=== PATIENT | female | born 2000 ===

== ENCOUNTER 2023-10-20 09:30 | Inpatient (IN) | payer OTHER ==
[~2023-10-20] VITALS: Ht 165.1 cm; Wt 56.7 kg
[2023-10-20 09:48] LABS: PH,URINE 5.5 (5.0-8.0); URINE APPEARANCE Clear; URINE BILIRRUBIN Negative (NEGATIVE); URINE BLOOD Large; URINE COLOR Orange; URINE GLUCOSE Negative (NEGATIVE); URINE KETONE Negative (NEGATIVE); URINE LEUKOCYTE Trace; URINE NITRATE Negative; URINE PROTEIN Negative (NEGATIVE)
[2023-10-20 09:51] LABS: HEMATOCRIT 27.8 % (36.0-45.00); MEAN CELL VOLUME 82.8 fL (80.00-100.00); PLATELET COUNT 241 K/uL (150-450); RED BLOOD COUNT 3.35 M/uL (4.00-6.00); RED CELL DISTRIBUTION WIDTH 23.3 % (11.5-14.5)
[2023-10-20 09:52] LABS: HEMOGLOBIN 10.5 g/dL (12.0-15.00); MEAN CORPUSCULAR HEMOGLOBIN 31.3 pg (27.00-32.0)
[2023-10-20 09:53] LABS: URINE BACTERIA 957.5 uL (0.0-1933); URINE EPITHELIAL CELLS 29.6 uL (0.0-38.8); URINE WBC 7.5 uL (0.0-23.2)
[2023-10-20] MEDS ORDERED: FOLIC ACID20 MG PO (10:02)
[2023-10-20] MEDS ORDERED: MAXIMUM D3325 MCG PO (10:02)
[2023-10-20 10:09] VITALS: BP 104/68
[2023-10-20 10:16] LABS: URINE CAST 0.15 uL (0.0-1.40)
[2023-10-20 10:45] LABS: INR 1.07; PARTIAL THROMBOPLASTIN TIME 27.1 SECONDS (22.0-34.0)
[2023-10-20 10:48] LABS: PROTHROMBIN TIME 11.6 SECONDS (9.0-11.5)
[2023-10-20 11:15] LABS: ALBUMIN 4.6 gm/dL (3.4-5.0); BILIRUBIN TOTAL 4.15 mg/dL (0.3-1.2); CALCIUM 9.5 mg/dL (8.5-10.1); CREATININE SERUM 0.34 mg/dL (0.55-1.02); GFR 243.05; GLOBULINA 3.1 G/DL (2.4-3.5); POTASSIUM 3.73 mEq/L (3.5-5.1); TOTAL PROTEIN 7.7 gm/dL (6.4-8.2)
[2023-10-24] MEDS ORDERED: CEFAZOLIN SODIUM 1,000 MG VIAL ONE ×2 (07:05→17:44)
[2023-10-24] MEDS ORDERED: SUGAMMADEX SODIUM 200 MG/2 ML VIAL IV ONE (16:21)
[2023-10-24] MEDS ORDERED: MORPHINE SULFATE 4 MG/ML VIAL IV SCH (17:00)
[2023-10-24] MEDS ORDERED: FAMOTIDINE/PF 20 MG/2 ML VIAL ONE (17:45)
[2023-10-24] MEDS ORDERED: CEFAZOLIN SODIUM 1,000 MG VIAL IV SCH (18:00)
[2023-10-24] MEDS ORDERED: MORPHINE SULFATE 4 MG/ML CARTRIDGE IV SCH (21:00)
[2023-10-24] MEDS ORDERED: FAMOTIDINE/PF 20 MG/2 ML VIAL IV SCH (21:00)
[2023-10-24 21:44] VITALS: BP 128/60; O2SAT 86
[2023-10-25 00:28] VITALS: BP 97/61; O2SAT 100
[2023-10-25] MEDS ORDERED: ONDANSETRON HCL 2 MG/ML VIAL IV ONE (05:30)
[2023-10-25 09:08] VITALS: BP 79/41; O2SAT 100
[2023-10-25] MEDS ORDERED: ACETAMINOPHEN 500 MG GEL..CAP PO PRN (10:45)
[2023-10-25 16:49] VITALS: BP 96/51; O2SAT 96
[2023-10-26 00:10] VITALS: BP 94/59; O2SAT 96
[2023-10-26 05:03] VITALS: BP 100/55
[2023-10-26 08:00] VITALS: BP 107/60; O2SAT 99
== END 2023-10-26 10:27 | disposition home or self-care (01) | DRG 801 ==
LOC: O/R 10-24 04:41 → SURH 10-24 09:30 → SURG 10-24 17:49
PROVIDERS: ADMIT Surgery; ATTEND Surgery
PROC: 07TP4ZZ Resection of Spleen, Percutaneous Endoscopic Approach (ICD-10-PCS; principal; 2023-10-24 10:30)
DX: D58.0 Hereditary spherocytosis (principal); D73.1 Hypersplenism; D73.2 Chronic congestive splenomegaly; R59.0 Localized enlarged lymph nodes

== ENCOUNTER 2024-08-27 06:06 | Day surgery (SDC) | payer OTHER ==
[2024-08-24 07:55] LABS: BASO % 1.1 % (0.1-1.2); EOS # 0.23 (0.04-0.54); EOS % 2.0 % (0.7-7.0); LYMPH # 3.00 (1.18-3.74); LYMPH % 26.4 % (19.3-53.1); MEAN PLATELET VOLUME 10.50 fl (9.4-12.4); MONO # 0.91 (0.24-0.82); MONO % 8.0 % (4.7-12.5); NEUT # 7.05 (1.56-6.13); NEUT % 62.2 % (34.0-71.1); RED CELL DISTRIBUTION WIDTH 11.7 % (11.6-14.4); URINE APPEARANCE Clear; URINE BILIRRUBIN Negative (NEGATIVE); URINE BLOOD Small; URINE COLOR Yellow; URINE GLUCOSE Negative (NEGATIVE); URINE KETONE Negative (NEGATIVE); URINE LEUKOCYTE Trace; URINE NITRATE Negative; URINE PROTEIN Negative (NEGATIVE); URINE UROBILINOGEN 0.2 E.U./dl
[2024-08-24 07:58] LABS: URINE BACTERIA 364.5 uL (0.0-1933); URINE EPITHELIAL CELLS 10.3 uL (0.0-38.8); URINE RBC 10.8 uL (0.0-20.8); URINE WBC 6.3 uL (0.0-23.2)
[2024-08-24 08:08] LABS: URINE CAST 0.00 uL (0.0-1.40)
[2024-08-24 08:40] LABS: INR 1.05
[2024-08-24 08:58] LABS: ALT/SGPT 17.0 U/L (12-78); AST/SGOT 9.0 U/L (15-37); BILIRUBIN TOTAL 0.87 mg/dL (0.3-1.2); BUN CREA RATIO 21.0 (7.0-25.0); CREATININE SERUM 0.43 mg/dL (0.55-1.02); GFR 183.61; GLOBULINA 3.6 G/DL (2.4-3.5); GLUCOSE FASTING 79.0 mg/dL (65-100); OSMOLALITY SERUM 281.0 MOSM/KG (275-295)
[~2024-08-27 06:06] MED LIST: FOLIC ACID20 MG PO; MAXIMUM D3325 MCG PO
[2024-08-27] MEDS ORDERED: CEFAZOLIN SODIUM 1,000 MG VIAL ONE (12:46)
[2024-08-27] MEDS ORDERED: MORPHINE SULFATE 4 MG/ML VIAL IV ONE (15:10)
== END 2024-08-27 17:50 | disposition home or self-care (01) ==
LOC: CIR.AMB 06:06
PROVIDERS: ATTEND Surgery
DX: K81.1 Chronic cholecystitis (principal)